=== PATIENT | female | born 1985 | race Caucasian/White ===

== ENCOUNTER → 2021-10-21 15:32 | Outpatient (BNVA) | payer MEDICAID, SELFPAY | PROVIDERS: Family Provider Family Medicine; PCP Family Medicine; Visit Provider Registered Nurse | DX: E66.9 Obesity, unspecified (principal) | CPT/HCPCS: 80053; 80061; 84443; 85025 ==

== ENCOUNTER → 2022-04-04 13:18 | Outpatient (BNVA) | payer MEDICAID, SELFPAY | PROVIDERS: Family Provider Family Medicine; PCP Family Medicine; Visit Provider Nurse Practitioner | DX: R52 Pain, unspecified (principal) | CPT/HCPCS: 87426 ==

== ENCOUNTER 2022-06-02 12:28 | Outpatient (CLI) | payer MEDICAID, SELFPAY ==
--- NOTE | 2022-06-02 13:30 | US_ITS ---
WS: [id number] US transvaginal [id number] HISTORY: N92.6 - Irregular menstruation, unspecified COMPARISON: None available. Uterus: 9.5 cm x 4.7 cm x 4.2 cm. Normal size anteverted uterus. No fibroid or mass. Endometrium: 1.1 cm. Normal endometrium. No mass or heterogeneity. Junctional zone is normal. Right ovary: 2.5 cm x 1.7 cm x 1.9 cm. RIGHT ovary is very difficult to see. There is a large amount shadowing in the RIGHT adnexa. The RIGHT ovary is not visualized in its entirety. Left ovary: 3.8 cm x 2.3 cm x 3.3 cm. Normal size and vascularity, no cystic or solid masses. Mildly heterogeneous follicle or corpus luteum in the LEFT ovary measures 1.7 x 1.6 x 1.7 cm. No free fluid in the cul-de-sac. US/US transvaginal [id number] IMPRESSION: 1. Normal endometrium. No mass or increased vascularity. 2. Poorly visualized RIGHT ovary.
== END 2022-06-02 12:29 | disposition home or self-care (01) ==
PROVIDERS: Family Provider Family Medicine; PCP Family Medicine; Visit Provider Nurse Practitioner
DX: N92.6 Irregular menstruation, unspecified (principal)
CPT/HCPCS: 76830

== ENCOUNTER → 2022-06-22 15:50 | Outpatient (BNVA) | payer MEDICAID, SELFPAY | PROVIDERS: Family Provider Family Medicine; PCP Family Medicine; Referring Provider Nurse Practitioner; Visit Provider Nurse Practitioner Women's Health | DX: N93.9 Abnormal uterine and vaginal bleeding, unspecified (principal); Z12.4 Encounter for screening for malignant neoplasm of cervix; Z13.1 Encounter for screening for diabetes mellitus | CPT/HCPCS: 83036; 84439; 84443; 84702; 85025; 87491; 87591; 87624; 87661 ==

== ENCOUNTER 2022-06-27 14:09 | Outpatient (CLI) | payer MEDICAID, SELFPAY ==
[2022-06-27 15:31] LABS: Thyroid Stimulating Hormone 2.82 uIU/mL (0.27-4.20)
== END 2022-06-27 14:10 | disposition home or self-care (01) ==
PROVIDERS: PCP Family Medicine; Visit Provider Nurse Practitioner Women's Health
DX: R79.89 Other specified abnormal findings of blood chemistry (principal)
CPT/HCPCS: 36415; 84443

== ENCOUNTER → 2022-07-01 13:22 | Outpatient (BNVA) | payer MEDICAID, SELFPAY | PROVIDERS: PCP Family Medicine; Visit Provider Nurse Practitioner Women's Health | DX: N93.9 Abnormal uterine and vaginal bleeding, unspecified (principal) | CPT/HCPCS: 81025; 88305 ==

== ENCOUNTER → 2023-05-22 14:47 | Outpatient (BNVA) | payer SELFPAY | PROVIDERS: PCP Family Medicine; Visit Provider Podiatrist Foot & Ankle Surgery | DX: S82.832D Other fracture of upper and lower end of left fibula, subsequent encounter for closed fracture with routine healing; X58.XXXD Exposure to other specified factors, subsequent encounter | CPT/HCPCS: 73610 ==